=== PATIENT | female | born 1960 | race Caucasian/White ===

== ENCOUNTER → 2016-06-04 17:00 | Outpatient (CLI) | payer OTHER | END | disposition home or self-care (01) | LOC: D.US 05-30 14:00 → D.MAMMO 05-30 14:30 | DX: N63 Unspecified lump in breast (principal) ==

== ENCOUNTER → 2016-10-01 19:36 | Outpatient (CLI) | payer SELFPAY | END | disposition home or self-care (01) | LOC: D.LABREF 19:36 | DX: Z13.6 Encounter for screening for cardiovascular disorders (principal) ==